=== PATIENT | male | born 1955 | race Caucasian/White ===

== ENCOUNTER 2018-07-08 10:47 | Emergency (ER) | payer OTHER ==
[2018-07-08 11:28] LABS: ADD MAN DIFF? NO
[2018-07-08 11:30] LABS: BASOPHIL # 0.1 10^3/ul (0.0-0.1); BASOPHILS % 0.7 % (0.0-2.0); EOSINOPHILS % 0.4 % (0.0-7.0); HEMOGLOBIN 14.7 g/dl (14.0-18.0); LYMPHOCYTES # 2.2 10^3/ul (0.8-2.9); LYMPHOCYTES % 20.4 % (15.0-51.0); MEAN CORPUSCULAR HEMOGLOBIN 29.7 pg (29.0-33.0); MEAN CORPUSCULAR HGB CONC 33.4 g/dl (32.0-37.0); MEAN CORPUSCULAR VOLUME 88.9 fl (82.0-101.0); MEAN PLATELET VOLUME 10.5 fl (7.4-10.4); MONOCYTE # 0.6 10^3/ul (0.3-0.9); MONOCYTES % 5.7 % (0.0-11.0); NEUTROPHIL # 7.9 10^3/ul (1.6-7.5); NEUTROPHILS % 72.3 % (39.0-77.0); PLATELET COUNT 336 10^3/UL (140-415); RED BLOOD COUNT 4.95 10^6/ul (4.70-6.10); RED CELL DISTRIBUTION WIDTH 12.7 % (11.5-14.5)
[2018-07-08 11:30] LABS: WHITE BLOOD COUNT 10.9 10^3/ul (4.8-10.8)
[2018-07-08 11:49] LABS: INR 0.91; PROTIME 12.3 Sec (11.9-14.9)
[2018-07-08 11:50] LABS: PARTIAL THROMBOPLASTIN TIME 24.5 Sec (23.0-35.0)
[2018-07-08 11:51] LABS: ANION GAP 16 (5-13); BLOOD UREA NITROGEN 10 mg/dl (7-20); CALCIUM 9.4 mg/dl (8.4-10.2); CARBON DIOXIDE 21 mmol/L (21-31); CHLORIDE 105 mmol/L (97-110); CREATININE 1.05 mg/dl (0.61-1.24); Estimated GFR > 60 mL/min (>60); GLUCOSE 175 mg/dl (70-220); POTASSIUM 3.9 mmol/L (3.5-5.1); SODIUM 142 mmol/L (135-144)
[2018-07-08] MEDS: ONDANSETRON 4 MG INJ IV (11:54)
[2018-07-08] MEDS: SOD CHLORIDE 0.9% 500 ML IV (11:54)
[2018-07-08] MEDS: morphine 2 MG INJ IV (11:55)
[2018-07-08] MEDS: IOHEXOL 300MG/ML 150 ML BTL (12:22)
[2018-07-08] MEDS: SOD CHLORIDE 0.9% 100 ML (12:22)
== END 2018-07-08 13:35 | disposition home or self-care (01) ==
LOC: E/R 10:47
DX: S20.212A Contusion of left front wall of thorax, initial encounter (principal); S62.617A Displaced fracture of proximal phalanx of left little finger, initial encounter for closed fracture; I10 Essential (primary) hypertension; Y04.8XXA Assault by other bodily force, initial encounter; Z87.891 Personal history of nicotine dependence
CPT/HCPCS: 29125; 71046; 73130-LT; 74177; 80048; 85025; 85610; 85730; 93005; 96374; 96375; 99285-25